=== PATIENT | female | born 1960 | race Hispanic/Latino ===

== ENCOUNTER 2022-12-31 05:30 | Day surgery (SDC) | payer BC ==
[2022-12-28 09:34] VITALS: BP 117/58
[~2022-12-31] VITALS: Ht 149.9 cm; Wt 53.2 kg
[~2022-12-31 05:30] MED LIST: PREMARIN1.25 MG PO
[2022-12-31 06:04] VITALS: BP 102/52
[2022-12-31] MEDS ORDERED: CELECOXIB200 MG PO (07:32)
[2022-12-31] MEDS ORDERED: HYDROCODON-ACE1 EA10 PO (07:32)
--- NOTE | 2022-12-31 07:55 | NUR ---
PT ARRIVES TO UNIT VIA STRETCHER FROM PACU. REPORT RECEIVED FROM RICO LOCKWOOD. PT REPORTS 3 OR 4/10 PAIN AT THIS TIME IN RT KNEE AND STATES THIS IS TOLERABLE NOT REQUIRING ANY PRN MEDS. PT IS A&O X4 WITH DAUGHTER AT BEDSIDE. DRESSING HAS SMALL AMOUNT OF SS DRAINAGE AT SUTURE SITES ONTO ABD PAD. PT ABLE TO WIGGLE TOES, SKIN IS PINK/WARM/DRY, PULSES PRESENT, AND CAP REFILL <3 SEC. VS TAKEN, BP REMAINS SOFT (LOW 100'S SYST), NON SYMPTOMATIC. PT REPORTS NO NAUSEA, DIZZINESS, TINGLING (SLIGHT NUMBNESS IN RT KNEE), OR SOB. SCD'S IN PLACE. ICE WATER, CRACKERS, AND JELLO PROVIDED. CALL LIGHT WITHIN REACH, PT REPORTS NO FURTHER NEEDS AT THIS TIME.
[2022-12-31 07:58] VITALS: BP 107/53
--- NOTE | 2022-12-31 08:05 | NUR ---
12/31/22 0805 Sheets,Lindsay 0748 PT ARRIVED TO PACU ON 6L VIA MASK PT ALSEEP AND JAW THRUST USED TO MAINTAIN AIRWAY. RESP EVEN AND UNLABORED. BP DECREASED AND GRAB SETTER AWARE.
[2022-12-31 08:49] VITALS: BP 102/42
--- NOTE | 2022-12-31 08:55 | NUR ---
IN ROOM FOR ASSESSMENT AND VS. PT REPORTS PAIN 5/10 AND REQUESTS PRN PAIN MED AT THIS TIME (SEE EMAR). SMALL AMOUNT OF SS AT SUTURE SITES ON ABD PAD ON DRESSING, DRESSING REMAINS INTACT. NO ACUTE CHANGES FROM PREVIOUS ASSESSMENT. PT TOLERATING ORALS W/OUT DIFFICULTY. DAUGHTER REMAINS AT BEDSIDE. CALL LIGHT WITHIN REACH, NO FURTHER NEEDS AT THIS TIME.
--- NOTE | 2022-12-31 09:40 | NUR ---
IN PT ROOM TO ASSIST PT TO RESTROOM. PT 1PA W/SLOW STEPS TO RESTROOM, PT STATED NO INCREASE IN PAIN, NO NAUSEA, NO DIZZINESS, AND NO INSTABILITY W/AMBULATION. PT URINE VOID 200 ML. PT NOW BACK IN BED. DRESSING CHECKED, TOP 2 SUTURES HAVE SMALL AMOUNT OF DRAINAGE AND LOWER SUTURE HAS LARGE AMOUNT OF SATURATION THROUGH ABD PAD POST AMBULATION. FREYA YEPEZ CALLED AND MADE AWARE, ORDERS RECEIVED OF NEW ABD PAD AND BLADIMIR WRAP APPLICATION... PT TOLERATED WELL. PT GETTING DRESSED AT THIS TIME.
--- NOTE | 2022-12-31 10:00 | NUR ---
NO NEW DRAINAGE AT THIS TIME POST DRESSING CHANGE. ABD REMAINS C/D/I AND BLADIMIR WRAP IN PLACE. DISCHARGE EDUCATION PROVIDED, DRESSING CHANGE MATERIALS PROVIDED, ALL QUESTIONS ANSWERED. VS TAKEN, STABLE. IV SITE DC'ED, WNL, CATHETER TIP INTACT, GAUZE/COBAN IN PLACE. NEW ICE PACK PROVIDED. THIS RN ESCORTS PT OUT VIA WC TO PASSENGER SIDE OF VEHICLE. ALL BELONGINGS IN PT POSSESSION. PT AND DAUGHTER REPORT NO FURTHER NEEDS/QUESTIONS AT THIS TIME.
[2022-12-31 10:31] VITALS: BP 110/41
--- NOTE | 2022-12-31 20:55 | EKG ---
[facility] [address] [place], [place] [address] Signed Normal sinus rhythm Normal ECG No previous ECGs available Confirmed by PATRICIA ORR MD ([id number]) on 12/31/2022 8:55:43 PM Electronically Signed By: PATRICIA ORR MD 12/31/222054 PATIENT NAME: RICKIE ROGERS Electrocardiogram DATE OF : 64 PHYSICIAN: PATRICIA ORR MD REPORT #: [id number] REPORT IS CONFIDENTIAL AND NOT TO BE RELEASED WITHOUT AUTHORIZATION
--- NOTE | 2023-01-03 08:34 | OR ---
[facility] [address] [place], [place] [address] Signed DATE OF OPERATION: 12/31/2022 SURGEON: Falguni Montiel MD PREOPERATIVE DIAGNOSIS: Medial meniscus tear, right knee. POSTOPERATIVE DIAGNOSIS: Medial meniscus tear, right knee. PROCEDURE PERFORMED: Right knee arthroscopy with partial medial meniscectomy. STATISTICAL CONSULTANT: None. ANESTHESIA: General. BLOOD LOSS: Minimal. BRIEF HISTORY: Chrissie is a 62-year-old female with progressive worsening of pain and catching in her knee. She had undergone nonoperative treatment and subsequent MRI with the findings above. Risks, benefits, and alternatives were discussed with her of surgery and she elected to proceed. Once consent was obtained, she was taken to the operating room. After adequate anesthesia, she was placed on the operating room table. Left leg was flexed, abducted and externally rotated on a well-padded leg salazar. Right was placed in well-padded proximal thigh leg salazar and the leg was prepped and draped in a standard sterile fashion. The portal sites were injected with 0.25% Marcaine with epinephrine. The standard inferolateral and superolateral portals were made and the scope was introduced in the knee. ARTHROSCOPIC FINDINGS: There was moderate synovitis throughout the knee. 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 The medial and lateral gutters were clear with large osteophytes marginally. ACL and PCL were intact. Again, there were medial osteophytes of both compartments. The medial compartment showed grade 4 chondromalacia to the anterior lateral half of the tibia and the corresponding femoral condyle. There was Electronically Signed By: FALGUNI MONTIEL MD 01/03/23 0834 PATIENT NAME: CHRISSIE ROGERS OPERATIVE REPORT DATE OF : 64 REPORT #: [id number] PHYSICIAN: FALGUNI MONTIEL MD PCP: NO PRIMARY CARE PHYSICIAN REPORT IS CONFIDENTIAL AND NOT TO BE RELEASED WITHOUT AUTHORIZATION [facility] [address] [place] [id number] Signed grade 3 chondromalacia to the remainder of the medial compartment with a complex tear of the meniscus posteriorly. The lateral compartment was essentially intact with only grade 1 softening of the cartilage. DESCRIPTION OF OPERATION: Standard inferomedial portal was made after localization using a spinal needle. The straight biter was then used to trim the meniscus tear from the mid medial body all the way around posteriorly. This was then smoothed using the shaver and all debris was evacuated. The femur showed no significant chondral flaps. The scope was withdrawn. Portals were closed with 3-0 nylon and the knee was injected with 60 mg of Toradol at the end of the case. The wounds were then dressed with Adaptic, ABD, and Zheng wrap. She tolerated the procedure well. All sponge, needle, and instrument counts were correct. Falguni Montiel MD BA/NIKOLAIL /[id number] Copies: ~ Electronically Signed By: FALGUNI MONTIEL MD 01/03/23 0834 PATIENT NAME: CHRISSIE ROGERS OPERATIVE REPORT DATE OF : 64 REPORT #: [id number] PHYSICIAN: FALGUNI MONTIEL MD PCP: NO PRIMARY CARE PHYSICIAN REPORT IS CONFIDENTIAL AND NOT TO BE RELEASED WITHOUT AUTHORIZATION
== END 2022-12-31 10:05 | disposition home or self-care (01) ==
LOC: DS 05:30
PROVIDERS: ATTEND Specialist
PROC: 0SBC4ZZ Excision of Right Knee Joint, Percutaneous Endoscopic Approach (ICD-10-PCS; principal; 2022-12-31 07:00)
DX: S83.241A Other tear of medial meniscus, current injury, right knee, initial encounter (principal); M25.761 Osteophyte, right knee; M94.261 Chondromalacia, right knee; M17.11 Unilateral primary osteoarthritis, right knee; X58.XXXA Exposure to other specified factors, initial encounter
CPT/HCPCS: 93005; 93010; J0131; J0690; J1100; J1885; J2405; J2704; J3010; J7121